=== PATIENT | female | born 1965 | race African-American/Black ===

== ENCOUNTER 2025-06-18 13:02 | Inpatient (IN) | payer OTHER, BC ==
[2025-06-18] VITALS (12 sets, daily range): BP systolic 119–142; BP diastolic 67–80; PULSE 85–121; RESP 9–22; TEMP 36.7–37.1408; O2SAT 93–96
[~2025-06-18] VITALS: Ht 157.5 cm; Wt 71.7 kg
[~2025-06-18 13:02] MED LIST: ALBU18HF2 IH; AMLO5TAB5 MT; AZIT250T12 MT; FLUT1BLS INH; P20 MT
[2025-06-18 13:40] LABS: BASOPHILS % 0.1 % (0.0-2.0); EOSINOPHILS % 0.2 % (0.0-5.0); HEMATOCRIT. 31.7 % (36.0-48.0); HEMOGLOBIN. 10.6 g/dL (12.0-16.0); LYMPHOCYTES % 14.6 % (20.0-50.0); MEAN PLATELET VOLUME 6.5 fl (7.4-10.4); MONOCYTES % 14.0 % (2.0-8.0); NEUTROPHILS % 71.1 % (40.0-76.0); PLATELET 364 x1000/uL (130-400); RED BLOOD CELL COUNT 3.13 mill/uL (4.2-5.4); RED CELL DISTRIBUTION WIDTH 15.1 % (11.6-14.6)
[2025-06-18] MEDS: ALBUTEROL (0.083%) 2.5MG/3ML NEB HHN SCH (13:40)
[2025-06-18] MEDS: IPRATROPIUM BROMIDE (0.02%) 0.5MG/2.5ML NEB HHN SCH (13:40)
[2025-06-18 13:51] LABS: INR 1.0
[2025-06-18 14:07] LABS: CREATININE 1.2 mg/dL (0.6-1.0)
[2025-06-18 14:08] LABS: UREA NITROGEN BLOOD 26 mg/dL (9-23)
[2025-06-18 14:09] LABS: ASPARTATE AMINOTRANSFERASE 125 IU/L (<34); BILIRUBIN DIRECT 0.3 mg/dL (<=3.0)
[2025-06-18 14:10] LABS: BILIRUBIN TOTAL 0.7 mg/dL (0.1-1.0); PROTEIN TOTAL 7.6 g/dL (6.0-8.3)
[2025-06-18] MEDS: METHYLPREDNISOLONE SOD SUCC 125MG/2ML (ACT-O-VIAL) IV ONE (14:17)
[2025-06-18] MEDS: SODIUM CHLORIDE 0.9% 1,000 ML IV ONE (14:17)
[2025-06-18] MEDS: MAGNESIUM 2 G PREMIX 50 ML IV ONE (14:17)
[2025-06-18 14:21] LABS: TROPONIN I HIGH SENSITIVITY 36 ng/L (3.0-34)
[2025-06-18 14:31] LABS: BG BASE EXCESS 3.5 mmol/L (-2.0-3.0); BG CARBOXYHEMOGLOBIN 2.2 % (0.5-1.5); BG DEOXYHEMOGLOBIN 1.0 % (0.0-5.0); BG FLOW(L/min) 7.00 L/min; BG FRACTION INSPIRED OXYGEN 80; BG HCO3 ACT 29.4 mmol/L (21.0-28.0); BG METHEMOGLOBIN 0.2 % (0.5-1.5); BG OXYGEN SATURATION 99.0 % (94.0-98.0); BG OXYHEMOGLOBIN 96.6 % (94.0-98.0); BG PCO2 50.1 mmHg (32.0-45.0); BG PH 7.386 (7.350-7.450); BG PO2 165.9 mmHg (83.0-108.0); BG SAMPLE SITE RIGHT BRACHIAL; BG TOTAL HEMOGLOBIN 11.8 g/dL (12.0-16.0); BG VENT MODE MASK - BIPAP+HHN; BG VENT RATE 18.0 set
[2025-06-18] MEDS: CEFTRIAXONE 2GM/50ML 50 ML IV ONE (14:42)
[2025-06-18] MEDS ORDERED: IPRATROPIUM/ALBUTEROL 0.5-3(2.5)MG/3ML NEB NEB PRN (15:00)
[2025-06-18] MEDS ORDERED: CLONIDINE 0.1MG TABLET PO PRN (15:00)
[2025-06-18] MEDS ORDERED: DIPHENHYDRAMINE 50MG/ML VIAL IV PRN (15:00)
[2025-06-18] MEDS ORDERED: PROMETHAZINE/DEXTROMETHORPHAN 6.25-15MG/5ML PO PRN (15:00)
[2025-06-18] MEDS ORDERED: ACETAMINOPHEN 325MG TABLET PO PRN (15:00)
[2025-06-18] MEDS ORDERED: MAGNESIUM/ALUMINUM HYDROXIDE/SIMETHICONE 30ML UDC PO PRN (15:00)
[2025-06-18] MEDS ORDERED: ONDANSETRON HCL 4MG/2ML INJ IV PRN (15:00)
[2025-06-18] MEDS: AZITHROMYCIN 500MG/250ML 250 ML IV SCH (15:12)
[2025-06-18] MEDS: TRAZODONE HCL 50MG TABLET PO SCH (15:30)
[2025-06-18] MEDS ORDERED: CYCLOBENZAPRINE 10MG TABLET PO PRN (15:30)
[2025-06-18] MEDS: IPRATROPIUM/ALBUTEROL 0.5-3(2.5)MG/3ML NEB HHN SCH (20:16)
[2025-06-18] MEDS: SODIUM CHLORIDE 0.9% 3ML FLUSH IVF SCH (21:01)
[2025-06-18] MEDS: GUAIFENESIN 600MG ER TABLET PO SCH (21:01)
[2025-06-18] MEDS: METHYLPREDNISOLONE SOD SUCC 125MG/2ML (ACT-O-VIAL) IV SCH (21:03)
[2025-06-18] MEDS: FAMOTIDINE 20MG TABLET PO SCH (21:03)
[2025-06-18] MEDS ORDERED: AMPICILLIN 1,000 MG in SODIUM CHLORIDE 0.9% 50 ML IV SCH (21:45)
[2025-06-18] MEDS: HYDROCODONE/ACETAMINOPHEN 10/325MG TABLET PO PRN (22:03)
[2025-06-18] MEDS: ZOLPIDEM TARTRATE 5MG TABLET PO PRN (22:04)
[2025-06-18] MEDS: AMPICILLIN 2000MG in SODIUM CHLORIDE 0.9% 100ML IV SCH (23:57)
[2025-06-19] VITALS (14 sets, daily range): BP systolic 88–152; BP diastolic 67–95; PULSE 66–95; RESP 15–20; TEMP 36.6–36.9; O2SAT 92–100
[2025-06-19] MEDS: MELOXICAM 15 MG TABLET PO SCH (10:44)
[2025-06-19] MEDS: ENOXAPARIN 40MG/0.4ML SYR SUBCUT SCH (10:44)
[2025-06-19] MEDS: DULOXETINE HCL 60MG DR CAPSULE PO SCH (10:45)
[2025-06-19] MEDS: FUROSEMIDE 40MG/4ML VIAL IVP SCH (18:06)
[2025-06-19] MEDS: METHYLPREDNISOLONE SOD SUCC 40MG/ML (ACT-O-VIAL) IV SCH (22:07)
[2025-06-20] VITALS (10 sets, daily range): BP systolic 135–156; BP diastolic 68–102; PULSE 72–106; RESP 11–23; TEMP 36.7–36.8; O2SAT 82–100
[2025-06-20] MEDS ORDERED: GUAIFENESIN 200MG/10ML SUGAR FREE UDC PO PRN (10:45)
[2025-06-20] MEDS: ACETAMINOPHEN 325MG TABLET PO PRN (15:10)
[2025-06-21] MEDS ORDERED: GABA-290 PO (02:41)
[2025-06-21] MEDS ORDERED: MELO-106 PO (02:41)
[2025-06-21] MEDS ORDERED: DULO60CA64 PO (02:41)
[2025-06-21] MEDS ORDERED: ATOR40TA70 PO (02:41)
[2025-06-21] MEDS ORDERED: TRAZ-252 PO (02:41)
[2025-06-21] MEDS ORDERED: AMLO5TAB88 PO (02:41)
[2025-06-21] MEDS ORDERED: CYCL10TA21 PO (02:41)
[2025-06-21] MEDS ORDERED: QUET200T30 PO (02:41)
== END 2025-06-20 20:31 | disposition home or self-care (01) | DRG 189 ==
LOC: ER 13:16 → EDBEDREQ 14:35 → EDBEDREQTM 14:35 → ENRESERV 14:42 → 5EST 16:01
PROVIDERS: ADMIT Internal Medicine; ATTEND Internal Medicine
PROC: 5A09357 Assistance with Respiratory Ventilation, Less than 24 Consecutive Hours, Continuous Positive Airway Pressure (ICD-10-PCS; principal; 2025-06-18)
PROC: 5A09357 Assistance with Respiratory Ventilation, Less than 24 Consecutive Hours, Continuous Positive Airway Pressure (ICD-10-PCS; 2025-06-19)
DX: J96.01 Acute respiratory failure with hypoxia (principal); I21.A1 Myocardial infarction type 2; J44.1 Chronic obstructive pulmonary disease with (acute) exacerbation; E87.29 Other acidosis; N17.9 Acute kidney failure, unspecified; J45.901 Unspecified asthma with (acute) exacerbation; E87.6 Hypokalemia; I10 Essential (primary) hypertension; G89.29 Other chronic pain; D64.9 Anemia, unspecified; F32.A Depression, unspecified; K05.219 Aggressive periodontitis, localized, unspecified severity; F17.210 Nicotine dependence, cigarettes, uncomplicated; Z55.6 Problems related to health literacy
CPT/HCPCS: 36415; 36600; 71045; 80048; 80076; 82375; 82805; 83735; 83880; 84484; 85025; 93005; 94070; 94640; 94660; 94664; 98960; 99291; A4606; J0290; J0456; J0696; J1650; J1938; J2919; J3475; J7030; J7050

== ENCOUNTER 2025-06-20 20:58 | Inpatient (IN) | payer OTHER, BC, MEDICARE ==
[~2025-06-20] VITALS: Ht 157.5 cm; Wt 65.9 kg
[2025-06-20 21:54] LABS: HEMATOCRIT. 31.0 % (36.0-48.0); HEMOGLOBIN. 10.6 g/dL (12.0-16.0); MEAN PLATELET VOLUME 6.8 fl (7.4-10.4); PLATELET 369 x1000/uL (130-400); RED BLOOD CELL COUNT 3.08 mill/uL (4.2-5.4); RED CELL DISTRIBUTION WIDTH 14.9 % (11.6-14.6)
[2025-06-20 22:04] LABS: INR 1.1
[2025-06-20 22:05] LABS: CREATININE 0.9 mg/dL (0.6-1.0)
[2025-06-20 22:06] LABS: ETHANOL BLOOD < 10 mg/dL (<10); UREA NITROGEN BLOOD 29 mg/dL (9-23)
[2025-06-20 22:07] LABS: ASPARTATE AMINOTRANSFERASE 100 IU/L (<34); BILIRUBIN DIRECT 0.2 mg/dL (<=3.0)
[2025-06-20 22:08] LABS: BILIRUBIN TOTAL 0.6 mg/dL (0.1-1.0); PROTEIN TOTAL 6.5 g/dL (6.0-8.3)
[2025-06-20] MEDS: ONDANSETRON HCL 4MG/2ML INJ IV ONE (22:20)
[2025-06-20] MEDS: KCL 10MEQ/50ML PREMIX 50 ML IV SCH (22:41)
[2025-06-20 23:05] LABS: BAND% 2.0 % (1.0-6.0); LYMPHOCYTES % MANUAL 11.0 % (20.0-60.0); MONOCYTES % MANUAL 1.0 % (2.0-8.0); NEUTROPHILS % MANUAL 86.0 % (45.0-75.0); PLATELET ESTIMATE NORMAL
[2025-06-20] MEDS ORDERED: IOHEXOL-350 100 ML BOTTLE ONE (23:17)
[2025-06-21] VITALS (8 sets, daily range): BP systolic 122–148; BP diastolic 43–98; PULSE 84–117; RESP 18–20; TEMP 36.3–37.3; O2SAT 95–100
[2025-06-21] MEDS ORDERED: DOCUSATE SODIUM 100MG CAPSULE PO PRN (00:15)
[2025-06-21] MEDS ORDERED: DEXTROSE 50% WATER 50ML SYRINGE IV PRN (00:15)
[2025-06-21] MEDS ORDERED: HYDRALAZINE 20MG/ML VIAL IV PRN (00:15)
[2025-06-21] MEDS ORDERED: ACETAMINOPHEN 325MG TABLET PO PRN (00:15)
[2025-06-21] MEDS ORDERED: LACTATED RINGERS 1,000 ML IV ONE (00:15)
[2025-06-21] MEDS ORDERED: CLONIDINE 0.1MG TABLET PO PRN (00:15)
[2025-06-21] MEDS ORDERED: ONDANSETRON HCL 4MG/2ML INJ IV PRN (00:15)
[2025-06-21] MEDS ORDERED: IPRATROPIUM/ALBUTEROL 0.5-3(2.5)MG/3ML NEB HHN PRN (00:15)
[2025-06-21 00:46] LABS: PHOSPHORUS 1.6 mg/dL (2.5-4.9)
[2025-06-21 00:49] LABS: FOLIC ACID (FOLATE) SERUM 5.83 ng/mL (>5.38)
[2025-06-21 00:50] LABS: TROPONIN I HIGH SENSITIVITY 54 ng/L (3.0-34)
[2025-06-21 00:50] LABS: VITAMIN B12 SERUM 1021 pg/mL (211-911)
[2025-06-21] MEDS ORDERED: CYCL10TA21 PO (02:41)
[2025-06-21] MEDS ORDERED: GABA-290 PO (02:41)
[2025-06-21] MEDS ORDERED: MELO-106 PO (02:41)
[2025-06-21] MEDS ORDERED: ATOR40TA70 PO (02:41)
[2025-06-21] MEDS ORDERED: AMLO5TAB88 PO (02:41)
[2025-06-21] MEDS ORDERED: TRAZ-252 PO (02:41)
[2025-06-21] MEDS ORDERED: QUET200T30 PO (02:41)
[2025-06-21] MEDS ORDERED: DULO60CA64 PO (02:41)
[2025-06-21] MEDS: PANTOPRAZOLE SODIUM 40 MG/VIAL IV SCH (04:01)
[2025-06-21] MEDS: FOLIC ACID 1 MG, THIAMINE HCL 100 MG, MVI, ADULT NO.1 10 ML in DEXTROSE 5% WATER 1,000 ML IV ONE (04:01)
[2025-06-21 04:21] LABS: BG BASE EXCESS 13.6 mmol/L (-2.0-3.0); BG CARBOXYHEMOGLOBIN 0.7 % (0.5-1.5); BG DEOXYHEMOGLOBIN 23.2 % (0.0-5.0); BG FRACTION INSPIRED OXYGEN 21; BG HCO3 ACT 38.3 mmol/L (21.0-28.0); BG METHEMOGLOBIN 0.3 % (0.5-1.5); BG OXYGEN SATURATION 76.6 % (94.0-98.0); BG OXYHEMOGLOBIN 75.8 % (94.0-98.0); BG PCO2 48.7 mmHg (32.0-45.0); BG PH 7.513 (7.350-7.450); BG PO2 41.9 mmHg (83.0-108.0); BG SAMPLE SITE RIGHT BRACHIAL; BG TOTAL HEMOGLOBIN 11.5 g/dL (12.0-16.0); BG VENT MODE ROOM AIR
[2025-06-21] MEDS ORDERED: AZITHROMYCIN 500MG/250ML 250 ML IV SCH (06:30)
[2025-06-21] MEDS: BLOOD SUGAR DIAGNOSTIC STRIP TEST SCH (06:32)
[2025-06-21] MEDS: PIPERACILLIN/TAZO 3.375G/50ML 50 ML IV SCH (07:00)
[2025-06-21 07:36] LABS: TROPONIN I HIGH SENSITIVITY 43 ng/L (3.0-34)
[2025-06-21] MEDS: INSULIN LISPRO 100 UNITS/ML SUBCUT SCH (08:10)
[2025-06-21] MEDS: BUDESONIDE 0.5MG/2ML NEB HHN SCH (08:54)
[2025-06-21] MEDS: IPRATROPIUM/ALBUTEROL 0.5-3(2.5)MG/3ML NEB HHN SCH (08:54)
[2025-06-21] MEDS ORDERED: POTASSIUM CHLORIDE 40 MEQ in DEXT 5% WATER 230 ML IV ONE (09:00)
[2025-06-21] MEDS: VANCOMYCIN 1.25GM/250ML IV NR (09:00)
[2025-06-21] MEDS: THIAMINE HCL 100 MG/1 ML 2ML VIAL IM SCH (10:00)
[2025-06-21 10:19] LABS: BG BASE EXCESS 13.2 mmol/L (-2.0-3.0); BG CARBOXYHEMOGLOBIN 0.3 % (0.5-1.5); BG DEOXYHEMOGLOBIN 2.6 % (0.0-5.0); BG FLOW(L/min) 4.00 L/min; BG FRACTION INSPIRED OXYGEN 36; BG HCO3 ACT 39.3 mmol/L (21.0-28.0); BG METHEMOGLOBIN 0.3 % (0.5-1.5); BG OXYGEN SATURATION 97.4 % (94.0-98.0); BG OXYHEMOGLOBIN 96.8 % (94.0-98.0); BG PCO2 56.9 mmHg (32.0-45.0); BG PH 7.457 (7.350-7.450); BG PO2 99.4 mmHg (83.0-108.0); BG SAMPLE SITE RIGHT RADIAL; BG TOTAL HEMOGLOBIN 11.9 g/dL (12.0-16.0); BG VENT MODE NASAL CANNULA
[2025-06-21] MEDS: POTASSIUM PHOSPHATE 30 MMOL in SODIUM CHLORIDE 0.9% 490 ML IV NR (15:53)
[2025-06-21] MEDS ORDERED: KCL 20MEQ/100ML X 2 FOR TOTAL KCL 40MEQ/200ML IV SCH (16:30)
[2025-06-21 17:22] LABS: CLARITY URINE CLEAR (CLEAR); COLOR URINE DARK YELLOW (YELLOW); GLUCOSE URINE NEGATIVE (NEGATIVE); KETONES URINE 1+ (NEGATIVE); LEUKOCYTE ESTERASE URINE NEGATIVE (NEGATIVE); NITRITE URINE NEGATIVE (NEGATIVE); OCCULT BLOOD URINE NEGATIVE (NEGATIVE); PH URINE 7.5 (4.5-8.0); PROTEIN URINE 1+ (NEGATIVE); SPECIFIC GRAVITY URINE 1.025 (1.005-1.030); UROBILINOGEN URINE 1.0 E.U./dL (0.2-1.0)
[2025-06-21 17:35] LABS: CREATINE KINASE MB FRACTION 1.7 ng/mL (0.5-3.6); CREATININE 0.6 mg/dL (0.6-1.0); UREA NITROGEN BLOOD 18 mg/dL (9-23)
[2025-06-21 17:40] LABS: T4 FREE 0.60 ng/dL (0.89-1.76)
[2025-06-21 17:53] LABS: BACTERIA URINE TRACE; RBC URINE 0-2 /hpf (0-2); SQUAMOUS EPITHELIAL CELL URINE 1+ /lpf (RARE/1+); WBC URINE 0-2 /hpf (0-2)
[2025-06-21 17:57] LABS: TROPONIN I HIGH SENSITIVITY 51 ng/L (3.0-34)
[2025-06-21 18:08] LABS: *AMPHETAMINES SCREEN URINE NEGATIVE (NEGATIVE); *BARBITURATES SCREEN URINE NEGATIVE (NEGATIVE); *BENZODIAZEPINES SCREEN URINE PRESUMPTIVE POSITIVE (NEGATIVE); *COCAINE SCREEN URINE NEGATIVE (NEGATIVE); CANNABINOID URINE SCREEN NEGATIVE (NEGATIVE); ECSTASY MDMA SCREEN URINE NEGATIVE (NEGATIVE); METHADONE URINE SCREEN NEGATIVE (NEGATIVE); OPIATES URINE SCREEN PRESUMPTIVE POSITIVE (NEGATIVE); PHENCYCLIDINE URINE SCREEN NEGATIVE (NEGATIVE)
[2025-06-21 19:58] LABS: BG BASE EXCESS 9.3 mmol/L (-2.0-3.0); BG CARBOXYHEMOGLOBIN 1.0 % (0.5-1.5); BG DEOXYHEMOGLOBIN 14.3 % (0.0-5.0); BG HCO3 ACT 33.7 mmol/L (21.0-28.0); BG METHEMOGLOBIN 0.3 % (0.5-1.5); BG OXYGEN SATURATION 85.5 % (94.0-98.0); BG OXYHEMOGLOBIN 84.4 % (94.0-98.0); BG PCO2 45.6 mmHg (32.0-45.0); BG PH 7.487 (7.350-7.450); BG PO2 51.8 mmHg (83.0-108.0); BG SAMPLE SITE LEFT RADIAL; BG TOTAL HEMOGLOBIN 10.6 g/dL (12.0-16.0); BG VENT MODE ROOM AIR
[2025-06-21] MEDS: VANCOMYCIN 750 MG IV SCH (21:08)
[2025-06-21] MEDS ORDERED: VANCOMYCIN 750MG PREMIX 150 ML IV SCH (21:34)
[2025-06-21] MEDS: VANCOMYCIN 750MG PREMIX 150 ML IV SCH (21:40)
[2025-06-21] MEDS: KCL 20MEQ/100ML X 2 FOR TOTAL KCL 40MEQ/200ML IV SCH (22:53)
[2025-06-22] VITALS (8 sets, daily range): BP systolic 118–152; BP diastolic 71–80; PULSE 84–116; RESP 13–20; TEMP 36.2–36.7; O2SAT 96–100
[2025-06-22 09:00] LABS: BASOPHILS % 0.0 % (0.0-2.0); EOSINOPHILS % 0.1 % (0.0-5.0); HEMATOCRIT. 31.0 % (36.0-48.0); HEMOGLOBIN. 10.6 g/dL (12.0-16.0); LYMPHOCYTES % 7.2 % (20.0-50.0); MEAN PLATELET VOLUME 7.2 fl (7.4-10.4); MONOCYTES % 4.3 % (2.0-8.0); NEUTROPHILS % 88.4 % (40.0-76.0); PLATELET 410 x1000/uL (130-400); RED BLOOD CELL COUNT 3.10 mill/uL (4.2-5.4); RED CELL DISTRIBUTION WIDTH 14.6 % (11.6-14.6)
[2025-06-22 09:17] LABS: CREATININE 0.7 mg/dL (0.6-1.0)
[2025-06-22 09:18] LABS: TRIGLYCERIDE 164 mg/dL (0-150); UREA NITROGEN BLOOD 14 mg/dL (9-23)
[2025-06-22 09:19] LABS: LDL CHOLESTEROL 71 mg/dL (5-100)
[2025-06-22 09:20] LABS: PHOSPHORUS 2.5 mg/dL (2.5-4.9)
[2025-06-22 09:21] LABS: T4 FREE 0.64 ng/dL (0.89-1.76)
[2025-06-22] MEDS: POTASSIUM CHLORIDE 20MEQ TABLET SR PO SCH (18:04)
[2025-06-22] MEDS: ENOXAPARIN 40MG/0.4ML SYR SUBCUT SCH (20:42)
[2025-06-22] MEDS: ACETAMINOPHEN 325MG TABLET PO PRN (21:26)
[2025-06-23] VITALS: BP 146/74; PULSE 85; RESP 18; TEMP 36.4; O2SAT 98
[2025-06-23 04:00] VITALS: BP 160/83; PULSE 87; RESP 20; TEMP 36.6; O2SAT 95
[2025-06-23] MEDS: THROAT LOZENGES-BENZOCAINE/MENTH/CETYLPYRD CL LOZENGES MM PRN (04:17)
[2025-06-23 07:36] LABS: CREATININE 0.6 mg/dL (0.6-1.0)
[2025-06-23 07:37] LABS: UREA NITROGEN BLOOD 6 mg/dL (9-23)
[2025-06-23 07:39] LABS: PHOSPHORUS 2.3 mg/dL (2.5-4.9)
[2025-06-23 08:00] VITALS: BP 135/74; PULSE 80; RESP 20; TEMP 36.7; O2SAT 95
[2025-06-23 08:00] LABS: BASOPHILS % 0.0 % (0.0-2.0); EOSINOPHILS % 0.2 % (0.0-5.0); HEMATOCRIT. 30.3 % (36.0-48.0); HEMOGLOBIN. 10.1 g/dL (12.0-16.0); LYMPHOCYTES % 7.5 % (20.0-50.0); MEAN PLATELET VOLUME 7.0 fl (7.4-10.4); MONOCYTES % 6.7 % (2.0-8.0); NEUTROPHILS % 85.6 % (40.0-76.0); PLATELET 395 x1000/uL (130-400); RED BLOOD CELL COUNT 3.04 mill/uL (4.2-5.4); RED CELL DISTRIBUTION WIDTH 14.3 % (11.6-14.6)
[2025-06-23 08:07] VITALS: PULSE 106; RESP 16
[2025-06-23] MEDS ORDERED: POTASSIUM CHLORIDE 20MEQ TABLET SR PO SCH (09:00)
[2025-06-23] MEDS ORDERED: AZITHROMYCIN 500MG/250ML 250 ML IV SCH (09:00)
[2025-06-23] MEDS ORDERED: POTASSIUM CHLORIDE 40 MEQ in DEXT 5% WATER 230 ML IV ONE (09:00)
[2025-06-23] MEDS ORDERED: AZITHROMYCIN 500 MG TABLET PO SCH (09:26)
[2025-06-23] MEDS ORDERED: KCL 20MEQ/100ML X 2 FOR TOTAL KCL 40MEQ/200ML IV SCH (09:30)
[2025-06-23] MEDS ORDERED: MAGNESIUM 4 G PREMIX 100 ML IV SCH (10:30)
[2025-06-23] MEDS: MAGNESIUM GLUCONATE 500MG TABLET PO SCH (11:32)
[2025-06-23] MEDS: LEVOFLOXACIN 250MG TABLET PO SCH (11:33)
[2025-06-23] MEDS: POTASSIUM CHLORIDE 20MEQ TABLET SR PO SCH (11:40)
[2025-06-23] MEDS: POTASSIUM-SODIUM PHOSPHATE POWDER PACKET PO SCH (11:40)
[2025-06-23 12:00] VITALS: BP 138/89; PULSE 81; RESP 20; TEMP 36.4; O2SAT 95
[2025-06-23] MEDS ORDERED: ACETYLCYSTEINE 200MG/ML 20% VIAL 4ML INH SCH (14:00)
[2025-06-23 14:59] VITALS: BP 138/89; PULSE 81; RESP 18; TEMP 97.6
[2025-06-23] MEDS ORDERED: LEVO750T68 MT (15:15)
[2025-06-23] MEDS ORDERED: POTA-189 PO (15:16)
[2025-06-24] MEDS ORDERED: FAMOTIDINE 20MG/2ML VIAL IV SCH (09:00)
== END 2025-06-23 17:46 | disposition home or self-care (01) | DRG 91 ==
LOC: ER 20:58 → 7WST 23:02 → EDBEDREQ 23:06 → EDBEDREQSVC 23:06 → EDBEDREQTM 23:06 → EDBEDREQSVC 23:31
PROVIDERS: ADMIT Hospitalist; ATTEND Hospitalist
DX: G92.8 Other toxic encephalopathy (principal); I21.A1 Myocardial infarction type 2; J96.01 Acute respiratory failure with hypoxia; J96.02 Acute respiratory failure with hypercapnia; J44.1 Chronic obstructive pulmonary disease with (acute) exacerbation; G91.9 Hydrocephalus, unspecified; J44.0 Chronic obstructive pulmonary disease with (acute) lower respiratory infection; R78.81 Bacteremia; I10 Essential (primary) hypertension; D53.9 Nutritional anemia, unspecified; Z96.643 Presence of artificial hip joint, bilateral; E87.6 Hypokalemia; F17.210 Nicotine dependence, cigarettes, uncomplicated; Z79.51 Long term (current) use of inhaled steroids
CPT/HCPCS: 36415; 36600; 70496; 70498; 71045; 76700; 80048; 80061; 80076; 80202; 80305; 80320; 81003; 82140; 82375; 82550; 82553; 82607; 82746; 82805; 82962; 83036; 83605; 83735; 84100; 84145; 84439; 84443; 84484; 85025; 85651; 87077; 87186; 93005; 94070; 94640; 99291; A4606; J1650; J2405; J2470; J2543; J3373; J3411; J3475; J3480; J3490; J7040; J7070; J7626; Q9967; G0480